=== PATIENT | male | born 1935 | race Caucasian/White ===

== ENCOUNTER → 2017-02-04 | Outpatient (CLI) | payer MEDICARE, BC ==
[2015-10-28 14:35] VITALS: BP 138/56
[~2017-02-04] MED LIST: AMLO10TA2 PO; ASPI325T11 PO; CALC200T3 PO; DUTA0.5C PO; FERR325T58 PO; GABA600T2 PO; HYDR-2766 PO; HYDR12.58 PO; METO50TA2 PO; NAPR375T3 PO; TAMS0.4C2 PO
--- NOTE | 2017-02-04 09:15 | KCIC ---
Indication: Palpable lump on the left back. Sonographic interrogation of the area of palpable abnormality was performed. There is a fairly well-defined hypoechoic mass at this location just below the skin surface measuring 2.0 cm x 0.8 x 1.0 cm. This most likely represents a lipoma. No other abnormality is seen. IMPRESSION: Soft tissue mass at the area of palpable abnormality, most suggestive of a lipoma. Continued clinical follow-up to confirm stability is recommended. Electronically signed by: Kirit Roberts MD (02/04/2017 9:12 AM) [id number]
== END | disposition home or self-care (01) ==
LOC: KCIC US 08:30
PROVIDERS: ATTEND Family Medicine
DX: R22.1 Localized swelling, mass and lump, neck (principal)
CPT/HCPCS: 76536

== ENCOUNTER → 2017-11-19 | Outpatient (CLI) | payer MEDICARE, BC | END | disposition home or self-care (01) | LOC: KCIC MRI 11:17 | DX: S46.011A Strain of muscle(s) and tendon(s) of the rotator cuff of right shoulder, initial encounter (principal); M62.511 Muscle wasting and atrophy, not elsewhere classified, right shoulder; X58.XXXA Exposure to other specified factors, initial encounter; Y93.89 Activity, other specified; Y92.89 Other specified places as the place of occurrence of the external cause; Y99.8 Other external cause status | CPT/HCPCS: 73221 ==